=== PATIENT | male | born 1970 | race Caucasian/White ===

== ENCOUNTER → 2023-08-26 15:23 | Outpatient (REF) | payer OTHER, SELFPAY ==
--- NOTE | 2023-08-26 15:31 | CA_ITS ---
Transthoracic Echocardiogram Patient (Last, First, Middle): Igor Sahu, Gender: Male Date of : 1970 Age: 53 Procedure Date: 08/26/2023 Procedure Type: Transthoracic Echocardiogram Location: OP Height: 172.72 cm Weight: 95.26 kg BSA: 2.09 m2 Heart Rate: bpm BP: 120 / 70 mmHg [employer] Architect: Referring MD: Luci Brenstein INVESTIGATIVE ANALYST Symptoms: AFIB I48.91 HILLARY G47.33 Study Quality: Adequate ECG Rhythm: Sinus Conclusions: - The left ventricular systolic function is mildly decreased. The calculated ejection fraction is 52% by biplane method. - The basal inferior and basal inferolateral segments are hypokinetic. - No obvious valvular pathology seen on this study. - There is mild dilatation of the ascending aorta measuring 4.00 cm. Findings Left Ventricle Normal left ventricular cavity size. There is normal left ventricular wall thickness. The left ventricular systolic function is mildly decreased. The calculated ejection fraction is 52% by biplane method. Diastolic function is normal for age. Wall Motion Rest Echo Findings The basal inferior and basal inferolateral segments are hypokinetic. Right Ventricle Normal right ventricular cavity size and systolic function. Atria Both atria are normal in size. Aortic Valve There is a normal trileaflet aortic valve. There is no aortic valve stenosis. There is no aortic valve regurgitation. Mitral Valve The mitral valve appears normal. There is no mitral valve regurgitation. There is no mitral valve stenosis. Pulmonic Valve The pulmonic valve is likely normal. Tricuspid Valve There is trace tricuspid valve regurgitation. There is no evidence of pulmonary hypertension. Great Vessels There is mild dilatation of the ascending aorta measuring 4.00 cm. Venous The inferior vena cava is normal in size and collapses greater than 50% with inspiration. Pericardium/Pleural There is no evidence of pericardial effusion. Prior Study Comparison No prior study available for comparison. Recommendations, Care & Conclusions No obvious valvular pathology seen on this study. Measurements 2D Linear Measurements IVSd: 0.97 0.6-0.9/0.6-1.0 cm LVIDd: 4.85 3.9-5.3/4.2-5.9 cm LVIDd Index: 2.32 2.4-3.2/2.2-3.1 cm/m2 LVIDs: 3.20 2.0-3.6 cm LVPWd: 1.11 0.7-1.1 cm Ao Root: 3.90 2.1-3.5 cm LA Diam: 3.00 2.7-3.8/3.0-4.0 cm LAIDs Index: 1.44 1.5-2.3 cm/m2 LV Mass: 226.88 67-162/88-224 g LV Mass Index: 108.55 43-95/49-115 g/m2 LVOT Diam: 2.50 3.0+(-)1.3 cm 2D Systolic Function EF 4C: 47.80 >55% EF 2C: 58.00 >55% EF BiP: 51.70 >55% Mitral Valve MV Pk E: 0.56 MV PK A: 0.54 MV Decel Time: 219.00 E/A: 1.00 E'Lateral: 11.20 E'Medial: 8.27 E/E' Med: 6.70 E/E' Lat: 5.00 PHT: 64.00 MVA PHT: 3.44 Decel Eddy: 2.54 Aortic Valve AoV Pk Calderon: 0.90 AoV Mn Calderon: 0.63 AoV VTI: 0.23 AoV Pk Grad: 3.00 Aov Mn Grad: 2.00 ALEJA Cont.VTI: 2.95 LVOT LVOT Pk Calderon: 0.59 LVOT Mn Calderon: 0.40 LVOT VTI: 0.14 LVOT Pk Grad: 1.00 LVOT Mn Grad: 1.00 LVOT Diam: 2.50 LVOT Area: 4.91 Diastolic Function MV Pk E: 0.56 MV Pk A: 0.54 E/A: 1.00 E'Medial: 8.27 E/E' Med: 6.70 E' Laterial: 11.20 E/E' Lat: 5.00 Right Ventricle TAPSE (mm): 29.00 TVS' Calderon: 12.00 Tricuspid Valve TR Pk Calderon: 1.98 TR Pk Grad: 16.00 RA Press: 3.00 RVSP: 19.00 Great Vessels Aorta Ao Root-2D: 3.90 2.0-3.7 cm Ao Asc: 4.00 2.1-3.4 cm Pulmonary Valve PV Pk Calderon: 0.87 Peak PV Grad: 3.00 Updated in Other Vendor System with Status of Final Pa Shultz MD electronically signed on 08/27/2023 5:51:41 AM with status of Final
== END ==
LOC: HO.CARD 15:23
PROVIDERS: PCP Internal Medicine; Visit Provider Nurse Practitioner
DX: I48.91 Unspecified atrial fibrillation (principal)
CPT/HCPCS: 93306

== ENCOUNTER → 2023-08-26 15:31 | Outpatient (BNV) | payer OTHER, SELFPAY | PROVIDERS: PCP Internal Medicine; Visit Provider Internal Medicine | DX: I48.91 Unspecified atrial fibrillation (principal); G47.33 Obstructive sleep apnea (adult) (pediatric) | CPT/HCPCS: 93306 ==